=== PATIENT | male | born 1980 | race Caucasian/White ===

== ENCOUNTER 2019-09-02 15:11 | Emergency (ER) | payer SELFPAY ==
[2019-09-02 15:27] VITALS: BP 124/79; PULSE 104; RESP 18; TEMP 36.5; O2SAT 98; BMI 29.5
--- NOTE | 2019-09-02 15:43 | ED_ITS ---
HPI - Skin/Abscess/Foreign Bdy General: Chief complaint: Skin/Abscess/Foreign Body Stated complaint: bug bites Time Seen by Provider: 09/02/19 15:26 History of Present Illness: HPI narrative: Patient is a healthy 39 year old presenting with skin abscesses on his left forearm and his left lower abdomen. He isn't sure if they could be insect bites. he denies IVDU. No history of diabetes. The one on his belly has started to drain. complaint: abscess/boil Onset (ago): day(s) (3) Location: LUE Quality: aching and constant Pain Consistency: constant Relieving factors: none Exacerbating factors: palpation and movement Associated symptoms: Deny chills or fever(s) Treatments prior to arrival: NSAID Review of Systems Const: Denies: fever(s), chills or body aches Skin/Breast: Reports: skin tenderness and skin swelling Angel/Lymph: Denies: easy bruising or easy bleeding PFSH ED PFSH: Social History Smoking and tobacco status: current every day smoker Physical Exam Const: COMMON NORMALS: no acute distress, average body habitus, patient oriented x3, no limitations, healthy appearing and alert Resp: COMMON NORMALS: normal respiratory effort and No use of accessory muscles Cardio: PERIPHERAL PULSES: radial pulses present GI: GI image (male): 1. cutaneous abscess, purulent drainage Extremity: LEFT UPPER EXTREMITY: Yes lower arm (cutaneous abscess left forearm - not draining - fluctuant and tender) Neuro: COMMON NORMALS: patient oriented x3 SENSORIUM/ORIENTATION: Yes alert Skin: COMMON NORMALS: no rashes or lesions noted (normal other than as described above) GENERAL SKIN EXAM: no rashes or lesions noted (normal other than as described above) Procedures Abscess I/D Site: upper extremity Side (if applicable): left (betadine prep) Technique: needle aspiration Amount of fluid expressed (mL): 1 Irrigation: No Packing used?: none Complications: pain Course ED course: minimal fluid from needle aspiration - culture obtained from the abdominal abscess. Outpatient abx, wound care, follow up if not improving. Vital Signs: Vital signs: Vital Signs Temperature 97.7 F 09/02/19 15:27 Pulse Rate 101 H 09/02/19 16:26 Respiratory Rate 18 09/02/19 16:26 Blood Pressure 113/78 09/02/19 16:26 Pulse Oximetry 100 09/02/19 16:26 Discharge Plan Discharge Patient Disposition: Home, Self-Care Clinical Impression: Abscess of skin or subcutaneous tissue Qualifiers: Site of cutaneous abscess: trunk Site of cutaneous abscess of trunk: abdominal wall Qualified Code(s): L02.211 - Cutaneous abscess of abdominal wall Abscess of skin and subcutaneous tissue Qualifiers: Site of cutaneous abscess: extremity Site of cutaneous abscess of extremity: upper extremity Laterality: left Qualified Code(s): L02.414 - Cutaneous abscess of left upper limb Condition: Stable Prescriptions: No Action Excedrin Extra Strength 250-250-65 mg Tablet 1 tab PO Q6H PRN (Reason: Pain) RF: 0 Discharge Diet: Usual diet Discharge Activity: Resume usual activity Patient Instructions: Abscess (ED) Activity Restrictions/Additional Instructions: Warm compresses several times daily. Return to the ED if not improving within 3 days. Take the antibiotic exactly as prescribed. Pain medicine as needed. Discharge Date/Time: 09/02/19 16:24 Print Language: [place] Coding Level of Care Code ED Tying Machine Operator Lumber for Bhavya Fwd Exam Detailed
[2019-09-02] MEDS: HYDROcodone-acetaminophen 5-325 mg Tablet 1 TAB PO (15:50)
[2019-09-02] MEDS: sulfamethoxazole-trimeth DS 160-800 mg Tablet 1 TAB PO (15:52)
[2019-09-02 16:26] VITALS: BP 113/78; PULSE 101; RESP 18; O2SAT 100
== END 2019-09-02 16:24 | disposition home or self-care (01) ==
PROVIDERS: Emergency Provider Emergency Medicine
DX: L02.211 Cutaneous abscess of abdominal wall (principal); L02.414 Cutaneous abscess of left upper limb; F17.210 Nicotine dependence, cigarettes, uncomplicated
CPT/HCPCS: 10060; 10160; 12345; 87070; 87077; 87186; 87205; 99281; 99282; 99283; A9270

== ENCOUNTER 2019-10-25 18:14 | Emergency (ER) | payer SELFPAY ==
[2019-10-25 18:30] VITALS: BP 125/82; PULSE 94; RESP 18; TEMP 36.4; O2SAT 98; BMI 30.1
== END 2019-10-25 21:34 | disposition left against medical advice (07) ==
LOC: ER 18:39
PROVIDERS: Emergency Provider Emergency Medicine
DX: Z53.21 Procedure and treatment not carried out due to patient leaving prior to being seen by health care provider (principal)
CPT/HCPCS: 99281

== ENCOUNTER 2019-10-26 11:12 | Emergency (ER) | payer SELFPAY ==
[2019-10-26 11:26] VITALS: BP 120/78; PULSE 99; RESP 14; TEMP 36.6; O2SAT 94; BMI 30.1
[2019-10-26 11:30] VITALS: PULSE 96
--- NOTE | 2019-10-26 11:33 | W.ED.EXTPRO ---
HPI - Extremity Problem General: Chief complaint: Extremity Injury, Upper Stated complaint: RIGHT ARM PAIN Time Seen by Provider: 10/26/19 11:33 History of Present Illness: HPI Narrative: Patient is a 39-year-old male who comes to the ED with right elbow pain. Patient says 2 days ago he fell and hit his right elbow into a wooden door frame. Ever since then he has had pain in the elbow that shoots down into the hand. Describes having some numbness/tingling sensation in digits 3 and 4. He currently rates the pain 9 out of 10. He is taking Excedrin for the pain that has not provided any relief. Patient does state that he works with his hands a lot in his current job, but denies any past carpal tunnel syndrome. Associated symptoms: Deny chest pain, fever(s) or rash Review of Systems Const: Denies: fever(s), chills or fatigue Eyes: Denies: change in vision or eye discomfort ENMT: Denies: throat pain, odynophagia, nasal discharge or nasal congestion Card: Denies: chest pain, palpitations, edema, swelling of feet/ankles, dyspnea on exertion or orthopnea Resp: Denies: dyspnea, productive cough or non-productive cough GI: Denies: abdominal pain, nausea, vomiting, diarrhea, constipation or hematochezia : Denies: flank pain, difficulty urinating, dysuria or hematuria Musc: Reports: extremity pain (right elbow); Denies: neck pain, back pain or extremity swelling Skin/Breast: Denies: rash or new lesions Neuro: Denies: headache(s), numbness in extremities or weakness in extremities [facility] ED PFSH: Social History Smoking and tobacco status: current every day smoker Physical Exam Const: COMMON NORMALS: patient oriented x3 and alert GENERAL APPEARANCE: cooperative and comfortable HENMT: COMMON NORMALS: normocephalic HEAD & SCALP: normocephalic MOUTH: Normal oral and palatal mucosa present THROAT: posterior oropharynx normal and uvula midline Neck/C-Spine: COMMON NORMALS: supple GENERAL: Yes normal visual inspection Resp: COMMON NORMALS: normal respiratory effort, No retractions, No use of accessory muscles and clear to auscultation bilaterally AUSCULTATION: clear to auscultation bilaterally Cardio: COMMON NORMALS: regular rate, regular rhythm, S1 normal heart sound present, S2 normal heart sound present, No gallops present (Cardio), No clicks present (Cardio), No murmurs present (Cardio) and Peripheral pulses 2+ throughout RATE: regular rate RHYTHM: regular rhythm HEART SOUNDS: S1 normal heart sound present and S2 normal heart sound present PERIPHERAL PULSES: Peripheral pulses 2+ throughout GI: COMMON NORMALS: Normal to inspection, nondistended, normoactive bowel sounds present, Soft to palpation, non-tender and no masses PALPATION: Yes Soft to palpation : COMMON NORMALS: Yes no CVA tenderness BLADDER/KIDNEY EXAM: Yes no CVA tenderness Back/Pelvis: COMMON NORMALS: no CVA tenderness Extremity: RIGHT UPPER EXTREMITY: Yes elbow joint (No visible deformity or swelling in the right elbow. Tenderness upon palpation around the olecranon process.) Right elbow: Yes inspection and Yes wrist Right wrist: Yes neurovascular exam (Intact) and Yes special tests Right wrist special tests: Tinel's test: Positive Neuro: COMMON NORMALS: patient oriented x3 and moves all extremities SENSORIUM/ORIENTATION: Yes alert Skin: COMMON NORMALS: no rashes or lesions noted GENERAL SKIN EXAM: no rashes or lesions noted and dry skin Course Vital Signs: Vital signs: Vital Signs Temperature 97.9 F 10/26/19 11:26 Pulse Rate 82 10/26/19 13:54 Respiratory Rate 18 10/26/19 13:54 Blood Pressure 103/70 10/26/19 13:54 Pulse Oximetry 94 10/26/19 13:54 MDM - Extremity (Nontraumatic) MDM Narrative: Medical decision making narrative: Patient is a 39-year-old male who comes to the ED with right elbow pain after having a fall. No visible deformity seen and some mild tenderness over the elbow. Patient did have a positive Tinel test. Right elbow x-ray showed no acute fractures or findings. In ED patient was given hydrocodone and then a Toradol shot with pain. He was put in a shoulder sling and told to take [id number] ibuprofen for pain. Wear sling for 3 days, but remove arm from sling and practice some range of motion daily. Rest, ice the elbow to help with symptoms. I also discussed with patient about the possible of him developing carpal tunnel. I told him to be reevaluated by provider in 5 to 7 days. He can return to ED if symptoms worsen. Patient understood and agreed with plan. Imaging Data^: Xray Ortho: Attestation: I personally reviewed and interpreted this imaging study as follows: Radiologist's impression: [address] [place] [address] XRay Report Signed Patient: Ludwig Murray Unit #: [id number] : 1980 Age/Sex: 39 / M ADM Date: 10/26/19 Loc: ER Room/Bed: Attending Dr: Ordering Provider/Ordering MD: Song Dhillon Date of Service: 10/26/19 Procedure(s): XR elbow RT min 3V* 02002 Accession Number(s): [id number] Report Number: [id number] WS: [id number] Right elbow, 3 views, 10/26/2019 Clinical Data: fall injury with elbow pain Comparison: None. Findings: No fractures or dislocations are seen. The radial head is normal. The soft tissues are unremarkable. XR/XR elbow RT min 3V* [id number] Impression: Negative right elbow. Dictated By: Dyana Castillo MD Signed By: Dyana Castillo MD Signed Date/Time: 10/26/191349 DD/ 49 Discharge Plan Discharge Patient Disposition: Home, Self-Care Clinical Impression: Elbow pain, right Condition: Stable Prescriptions: No Action Excedrin Extra Strength 250-250-65 mg Tablet 1 tab PO Q6H PRN (Reason: Pain) RF: 0 Discharge Orders: Discharge Order (Routine); Ordered 10/26/19 Ordered By: Song Dhillon Discharge Diet: Regular Discharge Activity: Limit activity as instructed Activity Restrictions/Additional Instructions: Follow-up with medical provider as directed 5-7 days. Take [id number] ibuprofen up to 800 mg 3 times a day. Ice and rest right elbow. Wear sling for the next 2 to 3 days to help provide comfort. Remove arm from swing and do some full range of motion all around elbow daily. Return to the ER or your medical provider if condition worsens. Please read and understand discharge instructions. If any questions, please ask. Discharge Date/Time: 10/26/19 13:58 Coding Level of Care Code ED Mercury Cracking Tester for Chg Fwd Exam Comprehensive
--- NOTE | 2019-10-26 11:40 | XR_ITS ---
WS: [id number] Right elbow, 3 views, 10/26/2019 Clinical Data: fall injury with elbow pain Comparison: None. Findings: No fractures or dislocations are seen. The radial head is normal. The soft tissues are unremarkable. XR/XR elbow RT min 3V* [id number] Impression: Negative right elbow.
[2019-10-26] MEDS: HYDROcodone-acetaminophen 7.5-325 mg Tablet 1 TAB PO (12:07)
[2019-10-26 12:08] VITALS: BP 120/75; PULSE 93; RESP 14; O2SAT 95
[2019-10-26 12:40] VITALS: BP 118/76; PULSE 78; RESP 18; O2SAT 93
[2019-10-26] MEDS: ketorolac 60 mg/2 mL INJ IM (13:26)
[2019-10-26 13:54] VITALS: BP 103/70; PULSE 82; RESP 18; O2SAT 94
== END 2019-10-26 13:58 | disposition home or self-care (01) ==
PROVIDERS: Emergency Provider Physician Assistant
DX: M25.521 Pain in right elbow (principal); F17.210 Nicotine dependence, cigarettes, uncomplicated
CPT/HCPCS: 12345; 73080; 96372; 99281; 99283; J1885

== ENCOUNTER 2020-03-30 08:40 | Emergency (ER) | payer SELFPAY ==
[2020-03-30 08:48] VITALS: BP 136/90; PULSE 98; RESP 18; TEMP 36.6; O2SAT 99; BMI 30.9
--- NOTE | 2020-03-30 08:58 | ED_ITS ---
HPI - Headache General: Chief Complaint: Headache Stated Complaint: Headache, N/V Time Seen by Provider: 03/30/20 08:47 History of Present Illness: HPI Narrative: Patient is a 40-year-old male who comes to the ED with headache. Symptoms started last Saturday. He rates his headache an 8 out of 10 and he says it is located on right parietal side of the head. He endorses photophobia, nausea and vomiting. He says he has had migraines in the past and this 1 seems to be just like his past migraines. Denies any fever, chills, vision changes, numbness tingling or weakness to face or extremities. Associated symptoms: Reports nausea and vomiting; Deny chest pain, fever(s) or rash Review of Systems Const: Denies: fever(s), chills or fatigue Eyes: Reports: photophobia; Denies: change in vision or eye discomfort ENMT: Denies: throat pain, odynophagia, nasal discharge or nasal congestion Card: Denies: chest pain, palpitations, edema, swelling of feet/ankles, dyspnea on exertion or orthopnea Resp: Denies: dyspnea, productive cough or non-productive cough GI: Reports: nausea and vomiting; Denies: abdominal pain, diarrhea, constipation or hematochezia : Denies: flank pain, difficulty urinating, dysuria or hematuria Musc: Denies: neck pain, back pain or extremity swelling Skin/Breast: Denies: rash or new lesions Neuro: Reports: headache(s); Denies: numbness in extremities or weakness in extremities PFS ED PFSH: Social History Smoking and tobacco status: current every day smoker Physical Exam Const: COMMON NORMALS: no acute distress, patient oriented x3 and alert GENERAL APPEARANCE: cooperative and comfortable HENMT: COMMON NORMALS: normocephalic HEAD & SCALP: normocephalic MOUTH: Normal oral and palatal mucosa present THROAT: posterior oropharynx normal and uvula midline Eye: COMMON NORMALS: Equal, round and reactive pupils present, EOMs intact bilaterally, conjunctivae normal and normal visual hood by confrontation CONJUNCTIVA: Yes conjunctivae normal PUPIL: Yes Equal, round and reactive pupils present Neck/C-Spine: COMMON NORMALS: supple GENERAL: Yes normal visual inspection Resp: COMMON NORMALS: normal respiratory effort, No retractions, No use of accessory muscles and clear to auscultation bilaterally AUSCULTATION: clear to auscultation bilaterally Cardio: COMMON NORMALS: regular rate, regular rhythm, S1 normal heart sound present, S2 normal heart sound present, No gallops present (Cardio), No clicks present (Cardio), No murmurs present (Cardio) and Peripheral pulses 2+ throughout RATE: regular rate RHYTHM: regular rhythm HEART SOUNDS: S1 normal heart sound present and S2 normal heart sound present PERIPHERAL PULSES: Peripheral pulses 2+ throughout GI: COMMON NORMALS: Normal to inspection, nondistended, normoactive bowel sounds present, Soft to palpation, non-tender and no masses PALPATION: Yes Soft to palpation : COMMON NORMALS: Yes no CVA tenderness BLADDER/KIDNEY EXAM: Yes no CVA tenderness Back/Pelvis: COMMON NORMALS: no CVA tenderness Extremity: COMMON NORMALS: normal to inspection Neuro: COMMON NORMALS: patient oriented x3, CN's II-XII intact bilaterally, moves all extremities, no focal motor deficits and no sensory deficits noted SENSORIUM/ORIENTATION: Yes alert COORDINATION/BALANCE: [id number] test normal SPEECH: speech normal GAIT: Yes Normal gait present SENSORY EXAM: Yes extremities (intact) MOTOR EXAM: 5/5 motor strength present throughout COORDINATION: [id number] test normal Skin: GENERAL SKIN EXAM: dry skin Course Reevaluation(s): Reevaluation #1: Patient says his migraine has completely went away after IV meds given here in the ED. Patient is ready for discharge. Time: 10:15 Vital Signs: Vital signs: Vital Signs Temperature 97.9 F 03/30/20 08:48 Pulse Rate 98 03/30/20 11:10 Respiratory Rate 18 03/30/20 08:48 Blood Pressure 121/88 03/30/20 11:10 Pulse Oximetry 100 03/30/20 11:10 MDM - Headache MDM Narrative: Medical decision making narrative: Patient is a 40-year-old male comes to the ED with a migraine. He has a history of migraines and says this migraine is just like other past ones. Neuro exam was normal. Patient was given IV 1 L normal saline, Toradol, Decadron, Benadryl and Reglan. Patient's migraine greatly improved and he was discharged. Follow-up with PCP in 7 to 10 days. Return to ED precautions given. Patient understood agree with plan. Discharge Plan Discharge Patient Disposition: Home Clinical Impression: Migraine Qualifiers: Migraine type: without aura Status migrainosus presence: without status migrainosus Intractability: not intractable Qualified Code(s): G43.009 - Migraine without aura, not intractable, without status migrainosus Condition: Stable Prescriptions: No Action Excedrin Extra Strength 250-250-65 mg Tablet 1 tab PO Q6H PRN (Reason: Pain) RF: 0 Discharge Orders: Discharge ED (Routine); Ordered 03/30/20 Ordered By: Song Dhillon Discharge Diet: Regular Discharge Activity: Resume usual activity Patient Instructions: Migraine Headache (ED) Activity Restrictions/Additional Instructions: Follow-up with medical provider as directed in 7 to 10 days. Take over-the- counter ibuprofen or Tylenol to help with any reoccurring headaches. Return to the ER or your medical provider if condition worsens. Please read and understand discharge instructions. If any questions, please ask. Coding Level of Care Code ED Post Exchange Manager for Bhavya Fwd Exam Comprehensive
[2020-03-30 09:22] VITALS: O2SAT 97
[2020-03-30] MEDS: metoclopramide 5 mg/mL SDV 2 mL 10 MG IVP (09:46)
[2020-03-30] MEDS: ketorolac 30 mg/mL INJ IVP (09:47)
[2020-03-30] MEDS: diphenhydrAMINE 50 mg/mL SDV 1mL 25 MG IVP (09:47)
[2020-03-30] MEDS: dexamethasone 4 mg/mL INJ 10 MG IVP (09:47)
[2020-03-30] MEDS: sodium chloride 0.9% 1,000 ML 999 ML IV (09:48)
[2020-03-30 11:10] VITALS: BP 121/88; PULSE 98; O2SAT 100
== END 2020-03-30 11:10 | disposition home or self-care (01) ==
PROVIDERS: Emergency Provider Physician Assistant
DX: G43.009 Migraine without aura, not intractable, without status migrainosus (principal); F17.210 Nicotine dependence, cigarettes, uncomplicated
CPT/HCPCS: 12345; 96361; 96374; 96375; 99283; J1100; J1200; J1885; J2765; J7030

== ENCOUNTER 2020-11-02 19:12 | Emergency (ER) | payer SELFPAY ==
[2020-11-02 19:24] VITALS: BP 127/61; PULSE 116; RESP 16; TEMP 38; O2SAT 97; BMI 26.7
[2020-11-02 20:28] VITALS: BP 102/68; PULSE 78; RESP 18; O2SAT 97
--- NOTE | 2020-11-02 21:30 | XRR_ITS ---
PROCEDURE INFORMATION: Exam: XR Chest Exam date and time: 11/02/2020 9:30 PM Age: 40 years old Clinical indication: Cough and fever and shortness of breath; Patient HX: Cough, fever, SOB, n/v; Additional info: SOB, fever TECHNIQUE: Imaging protocol: XR of the chest. Views: 1 view. COMPARISON: CR Chest 1 [place] [id number] 10/07/2018 12:30 PM FINDINGS: Lungs: Unremarkable. No consolidation. Pleural spaces: Unremarkable. No pleural effusion. No pneumothorax. Heart/Mediastinum: Unremarkable. No cardiomegaly. Bones/joints: Unremarkable. XR/XR chest 1V portable [id number] IMPRESSION: Negative for infiltrate
[2020-11-02 21:52] VITALS: BP 98/53; PULSE 90; RESP 18; O2SAT 95
[2020-11-02 21:55] LABS: Basophils % 0.3 %; Eosinophils # 0.1 10^3/uL (0.0-0.8); Eosinophils % 0.7 %; Hematocrit 39.6 % (42.0-52.0); Hemoglobin 13.4 g/dL (11.7-16.6); Lymphocytes % 17.6 %; Mean Corpuscular HGB Conc 33.8 g/dL (30.0-36.0); Mean Corpuscular Volume 88.8 fL (80-94); Mean Platelet Volume 9.9 fL (7.4-10.4); Monocytes # 1.8 10^3/uL (0.2-0.9); Monocytes % 15.5 %; Neutrophils # 7.43 10^3/uL (1.8-7.7); Neutrophils % 65.6 %; Nucleated Red Blood Cells % 0 %; Platelet Count 205 10^3/cmm (130-400); Red Blood Count 4.46 10^6/uL (4.1-5.3); Red Cell Distribution Width 13.6 % (12.1-15.1); White Blood Count 11.3 10^3/uL (4.0-10.0)
[2020-11-02 22:08] LABS: D Dimer 0.62 ug/mIFEU (0-0.59)
[2020-11-02 22:14] LABS: Lactic Sepsis W/Reflex 0.8 mmol/L (0.5-2.2)
[2020-11-02 22:21] LABS: Alanine Aminotransferase 8 U/L (0-41); Albumin Level 3.5 g/dL (3.5-5.2); Alkaline Phosphatase 77 IU/L (40-130); Anion Gap 12.6 (5-19); Aspartate Amino Transferase 14 U/L (0-40); Blood Urea Nitrogen 6 mg/dL (6-20); C Reactive Protein 52.6 mg/L (0.0-4.9); Calcium 8.2 mg/dL (8.5-10.5); Carbon Dioxide 26 mmol/L (22-29); Chloride 100 mmol/L (98-107); Ferritin 168 ng/mL (30-400); Globulin 2.8 g/dL (1.3-4.6); Glomerular Filtration Rate 94.4 mL/min (90-130); Glucose 109 mg/dL (65-115); Lactate Dehydrogenase 264 U/L (135-225); Osmolality Calculated 278 mOsm/kg (285-295); Potassium 3.6 mmol/L (3.5-5.1); Sodium 135 mmol/L (136-145); Total Bilirubin 0.2 mg/dL (0.15-1.2); Total Protein 6.3 g/dL (6.6-8.7)
[2020-11-02 22:28] LABS: Procalcitonin 0.05 ng/mL (0-0.5)
[2020-11-02 22:49] LABS: SARS Covid-2 Antigen Positive (Negative)
[2020-11-02 23:00] VITALS: BP 119/66; PULSE 78; RESP 18; O2SAT 96
--- NOTE | 2020-11-02 23:06 | W.ED.COVID ---
HPI - COVID General: Chief Complaint: COVID symptoms Stated Complaint: sob/headache Time Seen by Provider: 11/02/20 20:34 Source: patient Mode of arrival: ambulatory Limitations: no limitations Triage information: Has fever, cough or shortness of breath. No known COVID + exposure last 14 days History of Present Illness: HPI Narrative: Patient is a 40 year old male with no significant past medical history who present to the ED with complaints of cough, congestion, fever, body aches, and weakness. He has no sick contacts that he is aware of. He is here to be evaluated for this. MD complaint: has COVID symptoms Prior covid testing: no COVID 19 common symptoms: positive fever(s), chills, cough, fatigue, body aches and nasal congestion; negative dyspnea, headache(s), loss of sense of smell and/or taste, throat pain, nausea or vomiting COVID 19 other sytmptoms: negative chest pressure, chest pain, pleuritic pain, requiring oxygen, requiring more oxygen, respiratory distress, cyanosis, lethargy, confusion or new neurological complaints Onset (ago): day(s) Severity: mild COVID Results: SARS-CoV-2 Antigen (Rapid) Positive (Negative) H 11/02/20 22:10 11/02/20 Nasal/Oral Coronavirus 2019 PCR Detected H 11/02/20 22:17 11/02/20 Review of Systems General: Reports: 10 or more systems reviewed and unremarkable except in HPI and below Const: Reports: fever(s), chills, body aches and fatigue ENMT: Reports: nasal congestion; Denies: throat pain Card: Denies: chest pain Resp: Denies: dyspnea GI: Denies: nausea or vomiting Neuro: Denies: headache(s) or confusion [facility] ED PFSH: Social History (Reviewed 11/11/20 @ 12:55 by Usama Simental MD, [facility] [place]) Smoking and tobacco status: current every day smoker Physical Exam Const: COMMON NORMALS: no acute distress, average body habitus, patient oriented x3, no limitations, healthy appearing, alert and well nourished HENMT: COMMON NORMALS: normocephalic, atraumatic and moist oral mucous membranes HEAD & SCALP: normocephalic and atraumatic Neck/C-Spine: COMMON NORMALS: no meningeal signs and no JVD Resp: COMMON NORMALS: normal respiratory effort, No retractions, No use of accessory muscles, clear to auscultation bilaterally and percussion normal AUSCULTATION: clear to auscultation bilaterally PERCUSSION: percussion normal Cardio: COMMON NORMALS: no JVD, regular rate, regular rhythm, S1 normal heart sound present, S2 normal heart sound present, No gallops present (Cardio), No clicks present (Cardio), No murmurs present (Cardio), No rub (Cardio) and Peripheral pulses 2+ throughout RATE: regular rate RHYTHM: regular rhythm HEART SOUNDS: S1 normal heart sound present and S2 normal heart sound present PERIPHERAL PULSES: Peripheral pulses 2+ throughout GI: COMMON NORMALS: Normal to inspection, nondistended, normoactive bowel sounds present, Soft to palpation, non-tender, No hepatosplenomegaly present, no masses and no bruits PALPATION: Yes Soft to palpation and Yes No hepatosplenomegaly present Extremity: COMMON NORMALS: normal to inspection, full ROM, capillary refill normal, no calf tenderness and no pedal edema Neuro: COMMON NORMALS: patient oriented x3 SENSORIUM/ORIENTATION: Yes alert MENINGEAL SIGNS: Yes no meningeal signs Skin: COMMON NORMALS: no rashes or lesions noted, no wounds, turgor normal, no jaundice, no petechiae and no mottling GENERAL SKIN EXAM: no rashes or lesions noted and turgor normal Course Reevaluation(s): Reevaluation #1: Discussed his labs and imaging findings with him. He tested positive for COVID-19 in the ED. He is not hypoxic, CXR was unremarkable. Inflammatory markers mildly elevated. He does not meet criteria for monoclonal antibody infusion. He is discharged home with a pulse oximeter. He is to self isolate for at least 10 days from symptom onset. Time: 23:06 Vital Signs: Vital signs: Vital Signs Temperature 100.4 F H 11/02/20 19:24 Pulse Rate 76 11/02/20 23:32 Respiratory Rate 18 11/02/20 23:32 Blood Pressure 119/66 11/02/20 23:32 Pulse Oximetry 96 11/02/20 23:32 MDM - COVID MDM Narrative: Medical decision making narrative: 40 year old male with coivd symptoms. in the ED he tested positive for covid-19. He is not hypoxic, does not meet criteria for monoclonal antibody infusion. He is discharged home on conservative measures and with a pulse oximeter. Medical Records: Attestation: I reviewed the patient's medical records. Lab Data: Attestation: I reviewed the patient's lab results. Labs: Lab Results 11/02/20 11/02/20 11/02/20 Range/Units 21:45 21:45 21:45 WBC 11.3 H (4.0-10.0) 10^3/ uL RBC 4.46 (4.1-5.3) 10^6/u L Hgb 13.4 (11.7-16.6) g/dL Hct 39.6 L (42.0-52.0) % MCV 88.8 (80-94) fL MCH 30.0 (28.0-34.0) pg MCHC 33.8 (30.0-36.0) g/dL RDW 13.6 (12.1-15.1) % Plt Count 205 (130-400) 10^3/c mm MPV 9.9 (7.4-10.4) fL Neut % (Auto) 65.6 % Lymph % (Auto) 17.6 % [place] % (Auto) 15.5 % Eos % (Auto) 0.7 % Baso % (Auto) 0.3 % Neut # (Auto) 7.43 (1.8-7.7) 10^3/u L Lymph # (Auto) 2.0 (0.8-4.8) 10^3/u L [place] # (Auto) 1.8 H (0.2-0.9) 10^3/u L Eos # (Auto) 0.1 (0.0-0.8) 10^3/u L Baso # (Auto) 0.0 (0.0-0.1) 10^3/u L Nucleated RBC % (a uto) 0 % Nucleated RBCs # 0.0 /100WBC D-Dimer 0.62 H (0-0.59) ug/mIFE U Sodium 135 L (136-145) mmol/L Potassium 3.6 (3.5-5.1) mmol/L Chloride 100 (98-107) mmol/L Carbon Dioxide 26 (22-29) mmol/L Anion Gap 12.6 (5-19) BUN 6 (6-20) mg/dL Creatinine 0.9 (0.7-1.2) mg/dL GFR Calculation 94.4 (90-130) mL/min Glucose 109 (65-115) mg/dL Calculated Osmolal ity 278 L (285-295) mOsm/k g Lactic Acid (0.5-2.2) mmol/L Calcium 8.2 L (8.5-10.5) mg/dL Ferritin 168 (30-400) ng/mL Total Bilirubin 0.2 (0.15-1.2) mg/dL AST 14 (0-40) U/L ALT 8 (0-41) U/L Alkaline Phosphata se 77 (40-130) IU/L Lactate Dehydrogen ase 264 H (135-225) U/L C-Reactive Protein 52.6 H (0.0-4.9) mg/L Total Protein 6.3 L (6.6-8.7) g/dL Albumin 3.5 (3.5-5.2) g/dL Globulin 2.8 (1.3-4.6) g/dL Procalcitonin 0.05 (0-0.5) ng/mL Nasal/Oral COVID-1 9 PCR SARS-CoV-2 Ag (Rap id) (Negative) 11/02/20 11/02/20 11/02/20 Range/Units 21:45 22:10 22:17 WBC (4.0-10.0) 10^3/ uL RBC (4.1-5.3) 10^6/u L Hgb (11.7-16.6) g/dL Hct (42.0-52.0) % MCV (80-94) fL MCH (28.0-34.0) pg MCHC (30.0-36.0) g/dL RDW (12.1-15.1) % Plt Count (130-400) 10^3/c mm MPV (7.4-10.4) fL Neut % (Auto) % Lymph % (Auto) % [place] % (Auto) % Eos % (Auto) % Baso % (Auto) % Neut # (Auto) (1.8-7.7) 10^3/u L Lymph # (Auto) (0.8-4.8) 10^3/u L [place] # (Auto) (0.2-0.9) 10^3/u L Eos # (Auto) (0.0-0.8) 10^3/u L Baso # (Auto) (0.0-0.1) 10^3/u L Nucleated RBC % (a uto) % Nucleated RBCs # /100WBC D-Dimer (0-0.59) ug/mIFE U Sodium (136-145) mmol/L Potassium (3.5-5.1) mmol/L Chloride (98-107) mmol/L Carbon Dioxide (22-29) mmol/L Anion Gap (5-19) BUN (6-20) mg/dL Creatinine (0.7-1.2) mg/dL GFR Calculation (90-130) mL/min Glucose (65-115) mg/dL Calculated Osmolal ity (285-295) mOsm/k g Lactic Acid 0.8 (0.5-2.2) mmol/L Calcium (8.5-10.5) mg/dL Ferritin (30-400) ng/mL Total Bilirubin (0.15-1.2) mg/dL AST (0-40) U/L ALT (0-41) U/L Alkaline Phosphata se (40-130) IU/L Lactate Dehydrogen ase (135-225) U/L C-Reactive Protein (0.0-4.9) mg/L Total Protein (6.6-8.7) g/dL Albumin (3.5-5.2) g/dL Globulin (1.3-4.6) g/dL Procalcitonin (0-0.5) ng/mL Nasal/Oral COVID-1 9 PCR Detected H SARS-CoV-2 Ag (Rap id) Positive H (Negative) Imaging Data: CXR: Attestation: I personally reviewed and interpreted this imaging study as follows: Radiologist's impression: [address] [id number] ReportSigned Patient: Ludwig Murray #: [id number]: 1980Acct#:[id number]/Sex: 40 / MADM Date: 11/02/20Loc: ERRoom/Bed:Attending Dr: Ordering Provider/Ordering MD: Usama Simental MD, [facility] [place] Date of Service: 11/02/20 Procedure(s): XR chest 1V portable [id number] Accession Number(s): [id number] Report Number: [id number] PROCEDURE INFORMATION: Exam: XR Chest Exam date and time: 11/02/2020 9:30 PM Age: 40 years old Clinical indication: Cough and fever and shortness of breath; Patient HX: Cough, fever, SOB, n/v; Additional info: SOB, fever TECHNIQUE: Imaging protocol: XR of the chest. Views: 1 view. COMPARISON: CR Chest 1 [place] [id number] 10/07/2018 12:30 PM FINDINGS: Lungs: Unremarkable. No consolidation. Pleural spaces: Unremarkable. No pleural effusion. No pneumothorax. Heart/Mediastinum: Unremarkable. No cardiomegaly. Bones/joints: Unremarkable. XR/XR chest 1V portable [id number] IMPRESSION: Negative for infiltrate Dictated By:Isaias Parrish MDSigned By:Isaias Parrish MDSigned Date/Time:11/02/20 2252DD/ COVID Results: SARS-CoV-2 Antigen (Rapid) Positive (Negative) H 11/02/20 22:10 11/02/20 Nasal/Oral Coronavirus 2019 PCR Detected H 11/02/20 22:17 11/02/20 Monoclonal Antibody Treatments Inclusion/Exclusion Criteria weight >/= 40 kg and + direct Sars-Cov-2 test less than 7-10 days ago age not >/= 65, BMI not >/= 35, does not have diabetes, does not have CKD, not receiving immunosuppressive therapy, does not have immunosuppressive disease, not >/= 55 with hypertension, not >/= 55 with diabetes, not >/= 55 with COPD/lung disease, not 12-17y with BMI >/= 85th percentile, not 12-17y with heart disease, not 12-17y with sickle cell disease, not 12-17y with neurodevelopemental d/o, not 12-17y with asthma/RAD/lung disease and not 12-17y w/ medical technician assistant dependence not requiring hospitalization and not requiring oxygen (if not chronically on oxygen) Plan for treatment Does not meet criteria (DO NOT GIVE) Discharge Plan Discharge Patient Disposition: Home Clinical Impression: COVID-19 Condition: Stable Prescriptions: Continued Excedrin Extra Strength 250-250-65 mg Tablet 1 tab PO Q6H PRN (Reason: Pain) RF: 0 Discharge Orders: Discharge ED (Routine); Ordered 11/02/20 Ordered By: Usama Simental Discharge Diet: Usual diet Discharge Activity: Increase activity as tolerated Patient Instructions: Viral Syndrome (ED) Activity Restrictions/Additional Instructions: Return for any new or worsening symptoms. Follow-up with your primary care provider within 3 days via telemedicine. Check your oxygen levels using the pulse oximeter that was sent home with you, if your oxygen levels drop below 90% and stay below 90% for a while he needs to return to the emergency department to be evaluated. You need to quarantine for at least 10 days from when your symptoms started and be fever free for at least 24 hours without taking any medication. Coding Level of Care Code ED [employer] for Bhavya Hurd
[2020-11-02 23:32] VITALS: BP 119/66; PULSE 76; RESP 18; O2SAT 96
[2020-11-03 16:19] LABS: Coronavirus Test Green County Detected
== END 2020-11-02 23:22 | disposition home or self-care (01) ==
PROVIDERS: Emergency Provider Family Medicine
DX: U07.1 COVID-19 (principal); F17.200 Nicotine dependence, unspecified, uncomplicated
CPT/HCPCS: 71045; 80053; 82728; 83605; 83615; 84145; 85025; 85378; 86140; 87426; 87635; 99283

== ENCOUNTER 2021-04-25 16:25 | Emergency (ER) | payer SELFPAY ==
[2021-04-25 17:28] VITALS: BP 131/78; PULSE 102; RESP 15; TEMP 37.1; O2SAT 97; BMI 30.7
[2021-04-25 17:33] LABS: Glucose Point of Care 107 mg/dL (70-110)
--- NOTE | 2021-04-25 18:32 | XRR_ITS ---
PROCEDURE INFORMATION: Exam: XR Right Hand Exam date and time: 04/25/2021 6:32 PM Age: 41 years old Clinical indication: Swelling; Fingers; Right; Additional info: Infected thumb TECHNIQUE: Imaging protocol: XR Right hand. Views: 3 or more views. COMPARISON: No relevant prior studies available. FINDINGS: Bones/joints: Normal. Soft tissues: Normal. XR/XR hand RT min 3V* 10595 IMPRESSION: No acute findings.
--- NOTE | 2021-04-25 18:34 | W.ED.WOUNDLC ---
HPI - Wound/Laceration General: Chief Complaint: Wound/Laceration Stated Complaint: sore on right hand, poss infection Time Seen by Provider: 04/25/21 18:24 History of Present Illness: HPI narrative: 41-year-old male patient comes in with redness and tenderness to the right thumb dorsal side. Patient had gotten a splinter in it but since then he has developed increasing redness and swelling to it patient did report that last night he tried to remove the splinter and was able to open up and it drained some purulent fluid. Patient has felt worse today and just tired and worn out. Patient appears unwell but not toxic. Patient denies any chronic medical problems. Patient does work in a restaurant. Review of Systems General: Reports: 10 or more systems reviewed and unremarkable except in HPI and below Musc: Reports: other (Redness and swelling to the dorsal, distal right thumb.) [facility] ED PFSH: Social History (Reviewed 11/11/20 @ 12:55 by Usama Simental MD, [facility] [place]) Smoking and tobacco status: current every day smoker Physical Exam Const: COMMON NORMALS: patient oriented x3 GENERAL APPEARANCE: cooperative HENMT: COMMON NORMALS: normocephalic HEAD & SCALP: normal to inspection and normocephalic MOUTH: Normal oral and palatal mucosa present Eye: GENERAL EYE: appearance normal, both eyes and all related structures Neck/C-Spine: COMMON NORMALS: full ROM Resp: COMMON NORMALS: normal respiratory effort and clear to auscultation bilaterally EFFORT & INSPECTION: Yes able to speak in complete sentences AUSCULTATION: clear to auscultation bilaterally Cardio: COMMON NORMALS: regular rate and regular rhythm RATE: regular rate RHYTHM: regular rhythm GI: COMMON NORMALS: non-tender Extremity: OTHER: Right hand has some redness to the distal right thumb with a draining purulent wound, patient does have some streaking going up to the proximal joint of the right thumb. Patient does have normal range of motion without any deficits. Neuro: COMMON NORMALS: patient oriented x3 and moves all extremities Psych: COMMON NORMALS: mental status grossly normal and cooperative Skin: WOUNDS: Yes wounds noted (dorsal right thumb) drainage Course Vital Signs: Vital signs: Vital Signs Temperature 98.7 F 04/25/21 17:28 Pulse Rate 102 H 04/25/21 18:53 Respiratory Rate 16 04/25/21 18:53 Blood Pressure 138/82 04/25/21 18:53 Pulse Oximetry 97 04/25/21 18:53 MDM - Wound/Laceration MDM Narrative: Medical decision making narrative: Patient comes in with a wound to the right dorsal distal thumb. It is proximal to the nail bed. Patient has normal range of motion of the thumb. Normal cap refill. Patient does have some redness extending from the wound to the proximal joint of the right thumb. Vital signs are normal except for some elevation in pulse at 102. Differential diagnosis includes wound infection, tenosynovitis, osteomyelitis. Laboratory evaluation showed just a white count of 13.7, CMP was unremarkable, lactate was 0.7. Patient was given 1 g of Rocephin IV in the emergency room, 1 L of IV fluids, and 1 Bactrim DS p.o. Patient tolerated oral medications. We will continue with Augmentin 2 times a day for the next 7 days along with Bactrim to cover for MRSA. Encourage plenty of fluids rest and activity and follow-up with primary care or return to the ER for worsening symptoms. Lab Data: Labs: Lab Results 04/25/21 04/25/21 04/25/21 17:31 19:17 19:17 WBC 13.7 10^3/uL H 10 ^3/uL (4.0-10.0) RBC 4.75 10^6/uL 10^6 /uL (4.1-5.3) Hgb 14.3 g/dL g/dL (11.7-16.6) Hct 42.2 % % (42.0-52.0) MCV 88.8 fl fl (80-94) MCH 30.1 pg pg (28.0-34.0) MCHC 33.9 g/dL g/dL (30.0-36.0) RDW 13.5 % % (12.1-15.1) Plt Count 238 10^3/cmm 10^3 /cmm (130-400) MPV 9.7 fL fL (7.4-10.4) Neut % (Auto) 78.7 % % Lymph % (Auto) 11.7 % % [place] % (Auto) 8.1 % % Eos % (Auto) 0.9 % % Baso % (Auto) 0.3 % % Neut # (Auto) 10.76 10^3/uL H 1 0^3/uL (1.8-7.7) Lymph # (Auto) 1.6 10^3/uL 10^3/ uL (0.8-4.8) [place] # (Auto) 1.1 10^3/uL H 10^ 3/uL (0.2-0.9) Eos # (Auto) 0.1 10^3/uL 10^3/ uL (0.0-0.8) Baso # (Auto) 0.0 10^3/uL 10^3/ uL (0.0-0.1) Nucleated RBC % (a uto) 0 % % Nucleated RBCs # 0.0 /100WBC /100W BC Sodium 136 mmol/L mmol/L (136-145) Potassium 3.6 mmol/L mmol/L (3.5-5.1) Chloride 102 mmol/L mmol/L (98-107) Anion Gap 17.6 (5-19) BUN 12 mg/dL mg/dL (6-20) Creatinine 0.8 mg/dL mg/dL (0.7-1.2) GFR Calculation 107.6 mL/min mL/m in (90-130) Glucose 104 mg/dL mg/dL (65-115) POC Glucose 107 mg/dL mg/dL (70-110) Lactic Acid Calcium 9.1 mg/dL mg/dL (8.5-10.5) Total Bilirubin 0.4 mg/dL mg/dL (0.15-1.2) AST 17 U/L U/L (0-40) ALT 15 U/L U/L (0-41) Alkaline Phosphata se 100 IU/L IU/L (40-130) Total Protein 6.9 g/dL g/dL (6.6-8.7) Albumin 3.9 g/dL g/dL (3.5-5.2) Globulin 3.0 g/dL g/dL (1.3-4.6) 04/25/21 19:17 WBC RBC Hgb Hct MCV MCH MCHC RDW Plt Count MPV Neut % (Auto) Lymph % (Auto) [place] % (Auto) Eos % (Auto) Baso % (Auto) Neut # (Auto) Lymph # (Auto) [place] # (Auto) Eos # (Auto) Baso # (Auto) Nucleated RBC % (a uto) Nucleated RBCs # Sodium Potassium Chloride Anion Gap BUN Creatinine GFR Calculation Glucose POC Glucose Lactic Acid 0.7 mmol/L mmol/L (0.5-2.2) Calcium Total Bilirubin AST ALT Alkaline Phosphata se Total Protein Albumin Globulin Discharge Plan Discharge Patient Disposition: Home Clinical Impression: Cellulitis and abscess of hand Condition: Stable Prescriptions: New Augmentin 875-125 mg tablet 1 tab PO BID Qty: 14 RF: 0 Bactrim DS 800-160 mg tablet 1 tab PO BID 7 Days Qty: 14 RF: 0 No Action Excedrin Extra Strength 250-250-65 mg Tablet 1 tab PO Q6H PRN (Reason: Pain) RF: 0 Discharge Orders: Discharge ED (Routine); Ordered 04/25/21 Ordered By: Sanju Bridges Patient Instructions: Wound Infection (ED), Opioid Safety Activity Restrictions/Additional Instructions: Clean wound gently with mild soap and water daily cover wound to protect it from being soiled. Drink plenty of water with antibiotics. Follow-up with primary care in 3 days for recheck. Return to the ER for new concerns, or worsening symptoms. Stand Alone Forms: Work/School Release Coding Level of Care Code ED [employer] Train[employer] for Bhavya Fwd Exam Comprehensive
[2021-04-25 18:53] VITALS: BP 138/82; PULSE 102; RESP 16; O2SAT 97
[2021-04-25] MEDS: cefTRIAXone 1,000 MG in sodium chloride 0.9% (plus) 50 ML 100 MG IV (19:24)
[2021-04-25] MEDS: sodium chloride 0.9% 1,000 ML 999 ML IV (19:24)
[2021-04-25] MEDS: ketorolac 30 mg/mL INJ 15 MG IVP (19:25)
[2021-04-25] MEDS: sulfamethoxazole-trimeth DS 160-800 mg Tablet 1 TAB PO (19:25)
[2021-04-25 19:26] LABS: Basophils % 0.3 %; Eosinophils # 0.1 10^3/uL (0.0-0.8); Eosinophils % 0.9 %; Hematocrit 42.2 % (42.0-52.0); Hemoglobin 14.3 g/dL (11.7-16.6); Lymphocytes # 1.6 10^3/uL (0.8-4.8); Lymphocytes % 11.7 %; Mean Corpuscular HGB Conc 33.9 g/dL (30.0-36.0); Mean Corpuscular Hemoglobin 30.1 pg (28.0-34.0); Mean Corpuscular Volume 88.8 fl (80-94); Mean Platelet Volume 9.7 fL (7.4-10.4); Monocytes # 1.1 10^3/uL (0.2-0.9); Monocytes % 8.1 %; Neutrophils # 10.76 10^3/uL (1.8-7.7); Neutrophils % 78.7 %; Nucleated Red Blood Cells % 0 %; Platelet Count 238 10^3/cmm (130-400); Red Blood Count 4.75 10^6/uL (4.1-5.3); Red Cell Distribution Width 13.5 % (12.1-15.1); White Blood Count 13.7 10^3/uL (4.0-10.0)
[2021-04-25 19:38] LABS: Lactic Sepsis W/Reflex 0.7 mmol/L (0.5-2.2)
[2021-04-25 19:39] LABS: Alanine Aminotransferase 15 U/L (0-41); Albumin Level 3.9 g/dL (3.5-5.2); Alkaline Phosphatase 100 IU/L (40-130); Anion Gap 17.6 (5-19); Aspartate Amino Transferase 17 U/L (0-40); Blood Urea Nitrogen 12 mg/dL (6-20); Calcium 9.1 mg/dL (8.5-10.5); Carbon Dioxide 20 mmol/L (22-29); Chloride 102 mmol/L (98-107); Creatinine Clr Calc Pharmacy 149.2135; Glomerular Filtration Rate 107.6 mL/min (90-130); Glucose 104 mg/dL (65-115); Osmolality Calculated 282 mOsm/kg (285-295); Potassium 3.6 mmol/L (3.5-5.1); Sodium 136 mmol/L (136-145); Total Bilirubin 0.4 mg/dL (0.15-1.2); Total Protein 6.9 g/dL (6.6-8.7)
[2021-04-25 20:03] VITALS: RESP 16
== END 2021-04-25 20:04 | disposition home or self-care (01) ==
PROVIDERS: Emergency Provider Nurse Practitioner Family
DX: L03.113 Cellulitis of right upper limb (principal); L02.511 Cutaneous abscess of right hand; F17.210 Nicotine dependence, cigarettes, uncomplicated
CPT/HCPCS: 36416; 73130; 80053; 82962; 83605; 85025; 96365; 96375; 99284; J0696; J1885; J7030